=== PATIENT | female | born 1995 | race Caucasian/White ===

== ENCOUNTER → 2018-11-24 14:04 | Outpatient (CLI) | payer OTHER, SELFPAY ==
--- NOTE | 2018-11-24 | DI.MRI.S_ITS ---
PROCEDURE: MR TMJ WO CON INDICATIONS: JAW PAIN, Locking jaw TECHNIQUE: Axial T1 spin echo, coronal and sagittal PD fast spin echo through the temporomandibular joints, in both the closed- and open-mouth positions. COMPARISON: None. FINDINGS: Image quality: Excellent. Right: Joint is normally aligned on closed and open-mouth positioning. Articular disk demonstrates an anterior subluxed appearance on closed mouth and demonstrates reduction on open mouth. There is slight increased signal within the disc. No bony erosions or osteophytes. Left: Joint is normally aligned on closed and open-mouth positioning. Articular disk demonstrates an anterior subluxed appearance on closed mouth and demonstrates reduction on open mouth. There is slight increased signal within the disc. No bony erosions or osteophytes. IMPRESSION: 1. Slight anterior subluxed appearance of the discs on both the right and left sides with reduction on open mouth views. 2. Slight increased signal within the disc bilaterally suggestive of potential inflammation or degenerative change. Dictated by: Hollie Guerra M.D. on 11/29/2018 at 18:30 Approved by: Hollie Guerra M.D. on 11/29/2018 at 18:37
== END ==
PROVIDERS: Visit Provider Physician Assistant
DX: R68.84 Jaw pain (principal)
CPT/HCPCS: 70336